=== PATIENT | female | born 1940 | race Caucasian/White ===

== ENCOUNTER 2023-05-31 12:18 | Inpatient (IN) | payer MEDICARE, BC ==
[~2023-05-31] VITALS: Ht 167.6 cm; Wt 108.4 kg
[2023-05-31] MEDS ORDERED: VANCOMYCIN IV 1,000 MG in IV DEXTROSE 5% 250 ML IV ONE (12:45)
[2023-05-31] MEDS ORDERED: IV NORMAL SALINE 1000 ML BAG IV ONE (12:45)
[2023-05-31] MEDS ORDERED: CEFTRIAXONE 2 G in IV DEXTROSE 5% 100 ML IV ONE (12:45)
[2023-05-31 13:05] LABS: BASOPHILS # (AUTO) 0.1 K/UL (0.0-0.2); BASOPHILS % (AUTO) 0.5 % (0.0-2.0); DIFFERENTIAL COMMENT 0; HEMATOCRIT 44.3 % (31.2-41.9); HEMOGLOBIN 14.4 g/dL (10.9-14.3); LYMPHOCYTES # (AUTO) 0.7 K/uL (0.8-4.8); MEAN CORPUSCULAR HEMOGLOBIN 27.6 uug (24.7-32.8); MEAN CORPUSCULAR HGB CONC 33 g/dL (32.3-35.6); MEAN CORPUSCULAR VOLUME 84.7 fL (75.5-95.3); MONOCYTES # (AUTO) 0.4 K/uL (0.1-1.30); MONOCYTES % (AUTO) 3.8 % (0.0-11.0); NEUTROPHILS # (AUTO) 10.3 K/uL (1.8-8.9); NEUTROPHILS % (AUTO) 89.7 % (38.5-71.5); PLATELET COUNT (AUTO) 288 K/uL (179-408); RED BLOOD CELL COUNT(AUTO) 5.23 MIL/uL (3.63-4.92); RED CELL DISTRIBUTION WIDTH 15.2 % (12.3-17.7); WHITE BLOOD COUNT (AUTO) 11.5 K/uL (3.8-11.8)
[2023-05-31] MEDS ORDERED: VANCOMYCIN IV 200 ML ONE (13:06)
[2023-05-31] MEDS ORDERED: CEFTRIAXONE /D5W 50ML IVPB **ER PYXIS IV ONE (13:06)
[2023-05-31 13:35] LABS: ALANINE AMINOTRANSFERASE 32 U/L (14-59); ALBUMIN 3.6 g/dL (3.4-5.0); ALKALINE PHOSPHATASE 79 U/L (50-136); ASPARTATE AMINOTRANSFERASE 106 U/L (15-37); BILIRUBIN,DIRECT 0.2 mg/dL (0.0-0.2); BILIRUBIN,TOTAL 0.8 mg/dL (0.2-1.0); CALCIUM 9.6 mg/dL (8.5-10.1); CARBON DIOXIDE 27 mmol/L (21-32); CHLORIDE 99 mmol/L (98-107); CREATININE 0.9 mg/dL (0.6-1.3); GLUCOSE 114 mg/dL (74-106); SODIUM SERUM 139 mmol/L (136-145); TOTAL PROTEIN, SERUM 8.1 g/dL (6.4-8.2); UREA NITROGEN, BLOOD 19 mg/dL (7-18)
[2023-05-31 13:40] LABS: THYROID STIMULATING HORMONE 2.148 mIU/mL (0.358-3.740)
[2023-05-31 14:01] LABS: AMMONIA < 10 umol/L (11-32); ETHANOL < 3 MG/DL (0-10)
[2023-05-31 14:02] LABS: ACETAMINOPHEN < 10.0 ug/mL (10-30)
[2023-05-31 14:43] LABS: *BILIRUBIN,URIN NEGATIVE (NEGATIVE); *BLOOD, URINE NEGATIVE (NEGATIVE); *CLARITY,URINE CLEAR (CLEAR); *COLOR,URINE YELLOW (YELLOW); *KETONES,URINE 2+ (NEGATIVE); *PROTEIN,URINE 1+ (NEGATIVE); *UROBILINOGEN,URINE 0.2 E.U./dl (NORMAL); LEUKOCYTE ESTERASE ,URINE NEGATIVE (NEGATIVE); NITRITE, URINE NEGATIVE (NEGATIVE); PH,URINE 5.5 (5.0-8.0); UGLUCOSE NEGATIVE (NEGATIVE)
[2023-05-31 15:02] LABS: *AMPHETAMINE, URINE NEGATIVE (NEGATIVE); *BARBITURATE, URINE NEGATIVE (NEGATIVE); *BENZODIAZEPINE, URINE NEGATIVE (NEGATIVE); *CANNABINOID, URINE NEGATIVE (NEGATIVE); *COCCAINE, URINE NEGATIVE (NEGATIVE); *OPIATE, URINE NEGATIVE (NEGATIVE); *PHENCYCLIDINE SCREEN,URINE NEGATIVE (NEGATIVE)
[2023-05-31 15:05] LABS: FENTANYL, URINE NEGATIVE (NEGATIVE)
[2023-05-31 16:13] LABS: BACTERIA,URINE NONE SEEN /HPF (NONE SEEN); RBC,URINE 0-3 /HPF (0-3); SQUAMOUS EPITHELIAL CELL,UR FEW /HPF (NONE SEEN); WBC,URINE NONE SEEN /HPF (0-3)
[2023-05-31] MEDS ORDERED: ONDANSETRON 4 MG/2 ML VIAL IV PRN (18:15)
[2023-05-31] MEDS ORDERED: ACETAMINOPHEN 325 MG TABLET PO PRN (18:15)
[2023-05-31] MEDS ORDERED: REMEDY ESSENTIAL ZINC PASTE 113 GM TP PRN (18:15)
[2023-05-31] MEDS ORDERED: MAGNESIUM HYDROXIDE 30 ML LIQUID UDC PO PRN (18:15)
[2023-05-31 18:28] VITALS: BP 138/86; TEMP 97.7; O2SAT 99
[2023-05-31] MEDS: IV NS 1000 ML 1,000 ML IV PRN (19:59)
[2023-05-31 20:03] VITALS: BP 140/84; TEMP 97.8; O2SAT 98
[2023-05-31] MEDS ORDERED: diphenhydrAMINE 25 MG CAP PO PRN (22:15)
[2023-06-01 04:05] VITALS: BP 127/88; TEMP 97.6; O2SAT 97
[2023-06-01 07:37] LABS: BASOPHILS # (AUTO) 0.1 K/UL (0.0-0.2); EOSINOPHILS # (AUTO) 0.1 K/uL (0.0-0.7); EOSINOPHILS % (AUTO) 0.7 % (0.0-7.0); HEMATOCRIT 38.2 % (31.2-41.9); HEMOGLOBIN 12.6 g/dL (10.9-14.3); LYMPHOCYTES % (AUTO) 12.3 % (20.5-51.5); MEAN CORPUSCULAR HEMOGLOBIN 28.1 uug (24.7-32.8); MEAN CORPUSCULAR HGB CONC 33 g/dL (32.3-35.6); MEAN CORPUSCULAR VOLUME 85.6 fL (75.5-95.3); MONOCYTES # (AUTO) 0.5 K/uL (0.1-1.30); MONOCYTES % (AUTO) 6.3 % (0.0-11.0); NEUTROPHILS # (AUTO) 6.6 K/uL (1.8-8.9); NEUTROPHILS % (AUTO) 79.7 % (38.5-71.5); PLATELET COUNT (AUTO) 251 K/uL (179-408); RED BLOOD CELL COUNT(AUTO) 4.46 MIL/uL (3.63-4.92); RED CELL DISTRIBUTION WIDTH 15.1 % (12.3-17.7); WHITE BLOOD COUNT (AUTO) 8.3 K/uL (3.8-11.8)
[2023-06-01 07:49] LABS: DIFFERENTIAL COMMENT 1
[2023-06-01 07:59] LABS: CALCIUM 8.6 mg/dL (8.5-10.1); CARBON DIOXIDE 26 mmol/L (21-32); CHLORIDE 107 mmol/L (98-107); CREATININE 0.9 mg/dL (0.6-1.3); GLUCOSE 89 mg/dL (74-106); MAGNESIUM 1.9 mg/dL (1.8-2.4); PHOSPHOROUS 2.6 mg/dL (2.5-4.9); POTASSIUM 3.5 mmol/L (3.5-5.1); SODIUM SERUM 143 mmol/L (136-145); UREA NITROGEN, BLOOD 17 mg/dL (7-18)
[2023-06-01] MEDS: IV NS 1000 ML 1,000 ML IV PRN (10:51)
[2023-06-01 11:55] VITALS: TEMP 99.5; O2SAT 95
[2023-06-01] MEDS: MUPIROCIN 2% OINT 22 GM TUBE TP SCH (14:59)
[2023-06-01 15:23] VITALS: BP 158/66; TEMP 99; O2SAT 95
[2023-06-01] MEDS ORDERED: DONE10TA44 PO (15:56)
[2023-06-01] MEDS ORDERED: AMLO-212 PO (15:56)
[2023-06-01] MEDS ORDERED: LOSA100T31 PO (15:56)
[2023-06-01] MEDS ORDERED: MEMA10TA56 PO (15:56)
[2023-06-01] MEDS ORDERED: LEVO100T10 PO (15:56)
[2023-06-01 20:01] VITALS: BP 134/69; TEMP 98.7; O2SAT 96
[2023-06-01] MEDS: CLOTRIMAZOLE/BETAMET DIPROP CREAM 15 GM TUBE TOP SCH (21:52)
[2023-06-02 04:01] VITALS: BP 138/65; TEMP 98.6; O2SAT 97
[2023-06-02] MEDS: LEVOTHYROXINE SODIUM 100 MCG TABLET PO SCH (07:22)
[2023-06-02] MEDS: LOSARTAN POTASSIUM 50 MG TABLET PO SCH (09:00)
[2023-06-02 09:37] LABS: BASOPHILS # (AUTO) 0.1 K/UL (0.0-0.2); BASOPHILS % (AUTO) 1.3 % (0.0-2.0); EOSINOPHILS # (AUTO) 0.1 K/uL (0.0-0.7); EOSINOPHILS % (AUTO) 1.9 % (0.0-7.0); HEMATOCRIT 37.2 % (31.2-41.9); HEMOGLOBIN 12.4 g/dL (10.9-14.3); LYMPHOCYTES # (AUTO) 1.3 K/uL (0.8-4.8); LYMPHOCYTES % (AUTO) 19.2 % (20.5-51.5); MEAN CORPUSCULAR HEMOGLOBIN 28.4 uug (24.7-32.8); MEAN CORPUSCULAR HGB CONC 33 g/dL (32.3-35.6); MEAN CORPUSCULAR VOLUME 85.3 fL (75.5-95.3); MONOCYTES # (AUTO) 0.5 K/uL (0.1-1.30); MONOCYTES % (AUTO) 7.8 % (0.0-11.0); NEUTROPHILS # (AUTO) 4.8 K/uL (1.8-8.9); NEUTROPHILS % (AUTO) 69.8 % (38.5-71.5); PLATELET COUNT (AUTO) 227 K/uL (179-408); RED BLOOD CELL COUNT(AUTO) 4.36 MIL/uL (3.63-4.92); RED CELL DISTRIBUTION WIDTH 15.5 % (12.3-17.7); WHITE BLOOD COUNT (AUTO) 6.8 K/uL (3.8-11.8)
[2023-06-02 09:38] LABS: DIFFERENTIAL COMMENT 1
[2023-06-02] MEDS: MEMANTINE HCL 10 MG TABLET PO SCH (09:45)
[2023-06-02] MEDS: DONEPEZIL 10 MG TABLET PO SCH (09:45)
[2023-06-02 09:46] LABS: CALCIUM 8.4 mg/dL (8.5-10.1); CARBON DIOXIDE 27 mmol/L (21-32); CHLORIDE 105 mmol/L (98-107); CREATININE 0.8 mg/dL (0.6-1.3); GLUCOSE 99 mg/dL (74-106); MAGNESIUM 1.7 mg/dL (1.8-2.4); PHOSPHOROUS 2.2 mg/dL (2.5-4.9); POTASSIUM 3.1 mmol/L (3.5-5.1); SODIUM SERUM 140 mmol/L (136-145); UREA NITROGEN, BLOOD 12 mg/dL (7-18)
[2023-06-02] MEDS: AMLODIPINE 5 MG TABLET PO SCH (09:53)
[2023-06-02] MEDS: CLOTRIMAZOLE/BETAMET DIPROP CREAM 15 GM TUBE TOP SCH ×2 (09:55→20:55)
[2023-06-02] MEDS: MUPIROCIN 2% OINT 22 GM TUBE TP SCH (09:55)
[2023-06-02 11:16] VITALS: BP 100/73; TEMP 97.6; O2SAT 94
[2023-06-02] MEDS: IV NS 1000 ML 1,000 ML IV PRN (12:16)
[2023-06-02 15:39] VITALS: BP 110/70; TEMP 98.5; O2SAT 94
[2023-06-02] MEDS ORDERED: NEUTRA PHOS PACKET PO ONE (16:00)
[2023-06-02] MEDS ORDERED: MAGNESIUM OXIDE 400 MG TABLET PO ONE (16:00)
[2023-06-02] MEDS ORDERED: POTASSIUM CHLORIDE 20 MEQ TAB.PRT.SR PO ONE (18:00)
[2023-06-02 20:00] VITALS: BP 128/72; TEMP 99; O2SAT 96
[2023-06-03] MEDS: IV NS 1000 ML 1,000 ML IV PRN ×2 (01:06→20:35)
[2023-06-03 04:00] VITALS: BP 176/87; TEMP 98.4; O2SAT 96
[2023-06-03] MEDS: LOSARTAN POTASSIUM 50 MG TABLET PO SCH (05:41)
[2023-06-03] MEDS: LEVOTHYROXINE SODIUM 100 MCG TABLET PO SCH (06:56)
[2023-06-03 07:06] LABS: CALCIUM 8.7 mg/dL (8.5-10.1); CARBON DIOXIDE 28 mmol/L (21-32); CHLORIDE 102 mmol/L (98-107); CREATININE 0.7 mg/dL (0.6-1.3); GLUCOSE 112 mg/dL (74-106); PHOSPHOROUS 2.7 mg/dL (2.5-4.9); POTASSIUM 3.9 mmol/L (3.5-5.1); SODIUM SERUM 136 mmol/L (136-145); UREA NITROGEN, BLOOD 12 mg/dL (7-18)
[2023-06-03 07:10] VITALS: BP 169/70; O2SAT 96
[2023-06-03] MEDS: AMLODIPINE 5 MG TABLET PO SCH (08:46)
[2023-06-03] MEDS: MEMANTINE HCL 10 MG TABLET PO SCH (08:46)
[2023-06-03] MEDS: DONEPEZIL 10 MG TABLET PO SCH (08:47)
[2023-06-03] MEDS: MUPIROCIN 2% OINT 22 GM TUBE TP SCH (08:48)
[2023-06-03] MEDS: CLOTRIMAZOLE/BETAMET DIPROP CREAM 15 GM TUBE TOP SCH ×2 (08:48→20:22)
[2023-06-03 11:43] VITALS: BP 152/78; TEMP 98.2; O2SAT 96
[2023-06-03 16:15] VITALS: BP 165/80; TEMP 98; O2SAT 96
[2023-06-03 20:00] VITALS: BP 139/73; TEMP 97.5; O2SAT 99
[2023-06-04 04:00] VITALS: BP 168/80; TEMP 97.9; O2SAT 98
[2023-06-04] MEDS: LEVOTHYROXINE SODIUM 100 MCG TABLET PO SCH (06:08)
[2023-06-04] MEDS: LOSARTAN POTASSIUM 50 MG TABLET PO SCH (09:22)
[2023-06-04] MEDS: DONEPEZIL 10 MG TABLET PO SCH (09:22)
[2023-06-04] MEDS: AMLODIPINE 5 MG TABLET PO SCH (09:23)
[2023-06-04] MEDS: MUPIROCIN 2% OINT 22 GM TUBE TP SCH (09:23)
[2023-06-04] MEDS: CLOTRIMAZOLE/BETAMET DIPROP CREAM 15 GM TUBE TOP SCH (09:23)
[2023-06-04] MEDS: MEMANTINE HCL 10 MG TABLET PO SCH (09:23)
[2023-06-04 11:30] VITALS: BP 155/77; TEMP 98.5; O2SAT 96
[2023-06-04] MEDS ORDERED: AMLO10TA59 PO (11:30)
[2023-06-04] MEDS: IV NS 1000 ML 1,000 ML IV PRN (12:37)
[2023-06-04 16:28] VITALS: BP 134/68; TEMP 98.4; O2SAT 96
== END 2023-06-04 20:05 | DRG 557 ==
LOC: ER 12:18 → MEDSURG3 17:51
PROVIDERS: ADMIT Internal Medicine; ATTEND Internal Medicine
DX: M62.82 Rhabdomyolysis (principal); G93.41 Metabolic encephalopathy; D68.59 Other primary thrombophilia; F03.918 Unspecified dementia, unspecified severity, with other behavioral disturbance; I67.82 Cerebral ischemia; E86.0 Dehydration; E66.01 Morbid (severe) obesity due to excess calories; Z68.38 Body mass index [BMI] 38.0-38.9, adult; E78.5 Hyperlipidemia, unspecified; Z96.643 Presence of artificial hip joint, bilateral; T68.XXXA Hypothermia, initial encounter; R82.4 Acetonuria; M20.42 Other hammer toe(s) (acquired), left foot; M20.41 Other hammer toe(s) (acquired), right foot; S80.812A Abrasion, left lower leg, initial encounter; S80.811A Abrasion, right lower leg, initial encounter; W18.30XA Fall on same level, unspecified, initial encounter; Y92.009 Unspecified place in unspecified non-institutional (private) residence as the place of occurrence of the external cause; R60.0 Localized edema; R79.89 Other specified abnormal findings of blood chemistry; I10 Essential (primary) hypertension
CPT/HCPCS: 36415; 70450; 71045; 72125; 83605; 83735; 84100; 84443; 84484; 85025; 85730; 87040; 93005; 93307; G0378; G0480; J0696; J3370; J7040

== ENCOUNTER 2025-03-26 09:23 | Inpatient (IN) | payer BC, MEDICARE ==
[~2025-03-26] VITALS: Ht 162.6 cm; Wt 101.6 kg
[~2025-03-26 09:23] MED LIST: AMLO10TA59 PO; DONE10TA44 PO; LEVO100T10 PO; LOSA100T31 PO; MEMA10TA56 PO
[2025-03-26] MEDS: IV NORMAL SALINE 1000 ML BAG IV ONE (09:38)
[2025-03-26 09:57] LABS: PLATELET COUNT (AUTO) 281 K/uL (179-408); RED BLOOD CELL COUNT(AUTO) 4.24 MIL/uL (3.63-4.92); RED CELL DISTRIBUTION WIDTH 15.6 % (12.3-17.7); WHITE BLOOD COUNT (AUTO) 7.7 K/uL (3.8-11.8)
[2025-03-26 10:06] LABS: CREATININE 1.0 mg/dL (0.6-1.3); SODIUM SERUM 144 mmol/L (136-145); UREA NITROGEN, BLOOD 23 mg/dL (7-18)
[2025-03-26 10:13] LABS: *BILIRUBIN,URIN NEGATIVE (NEGATIVE); *BLOOD, URINE 3+ (NEGATIVE); *CLARITY,URINE SLIGHTLY CLOUDY (CLEAR); *COLOR,URINE YELLOW (YELLOW); *KETONES,URINE 2+ (NEGATIVE); *PROTEIN,URINE 2+ (NEGATIVE); *UROBILINOGEN,URINE 0.2 E.U./dl (NORMAL); LEUKOCYTE ESTERASE ,URINE 3+ (NEGATIVE); NITRITE, URINE POSITIVE (NEGATIVE); UGLUCOSE NEGATIVE (NEGATIVE)
[2025-03-26] MEDS ORDERED: LIDOCAINE HCL 1% 20 ML VIAL ONE (10:13)
[2025-03-26] MEDS: LIDOCAINE 2%-EPI 1:100,000 20 ML VIAL IJ ONE (10:15)
[2025-03-26 10:20] LABS: ASPARTATE AMINOTRANSFERASE 20 U/L (15-37); TOTAL PROTEIN, SERUM 7.4 g/dL (6.4-8.2)
[2025-03-26] MEDS ORDERED: LIDOCAINE 1%-EPI 1:100,000 20 ML VIAL ONE (10:20)
[2025-03-26] MEDS ORDERED: NEOMY/BACITRA/POLYMYXIN B OINT UD PACKET TP ONE (10:21)
[2025-03-26] MEDS: NEOMY/BACITRA/POLYMYXIN B OINT UD PACKET TP ONE (10:22)
[2025-03-26 10:36] LABS: SQUAMOUS EPITHELIAL CELL,UR MODERATE /HPF (NONE SEEN)
[2025-03-26] MEDS ORDERED: CEFAZOLIN 1 G VIAL ONE (11:42)
[2025-03-26] MEDS: CEFAZOLIN 1 G in IV DEXTROSE 5% 50 ML IV ONE (11:46)
[2025-03-26 12:05] VITALS: BP 151/74
[2025-03-26 12:37] VITALS: BP 131/50; TEMP 97.5; O2SAT 100
[2025-03-26] MEDS ORDERED: METO-356 PO (12:43)
[2025-03-26] MEDS ORDERED: MAGNESIUM HYDROXIDE 30 ML LIQUID UDC PO PRN (13:45)
[2025-03-26] MEDS ORDERED: PIPERACILLIN SODIUM/TAZOBACTAM 3.375 G in IV DEXTROSE 5% 50 ML IV SCH (14:00)
[2025-03-26] MEDS: PIPERACILLIN SODIUM/TAZOBACTAM 3.375 G in IV DEXTROSE 5% 100 ML IV SCH (14:25)
[2025-03-26] MEDS ORDERED: METO-357 PO (14:46)
[2025-03-26] MEDS ORDERED: FURO20TA4 PO (14:46)
[2025-03-26 15:52] VITALS: O2SAT 96
[2025-03-26 16:00] VITALS: BP 138/61; TEMP 97.8; O2SAT 100
[2025-03-26] MEDS: NYSTATIN POWDER 15 GM BOTTLE TOP SCH (16:05)
[2025-03-26 19:00] VITALS: BP 130/68; TEMP 98; O2SAT 98
[2025-03-26] MEDS: ACETAMINOPHEN 325 MG TABLET PO PRN (22:20)
[2025-03-27 05:17] VITALS: O2SAT 96
[2025-03-27 06:04] VITALS: BP 106/81; TEMP 97.6; O2SAT 95
[2025-03-27 06:12] VITALS: BP 118/58; TEMP 97.7; O2SAT 91
[2025-03-27 08:35] LABS: PLATELET COUNT (AUTO) 246 K/uL (179-408); RED BLOOD CELL COUNT(AUTO) 3.98 MIL/uL (3.63-4.92); RED CELL DISTRIBUTION WIDTH 16.1 % (12.3-17.7); WHITE BLOOD COUNT (AUTO) 5.2 K/uL (3.8-11.8)
[2025-03-27 08:49] LABS: CREATININE 1.0 mg/dL (0.6-1.3); SODIUM SERUM 140 mmol/L (136-145); UREA NITROGEN, BLOOD 17 mg/dL (7-18)
[2025-03-27] MEDS: LEVOTHYROXINE SODIUM 100 MCG TABLET PO SCH (10:52)
[2025-03-27 12:00] VITALS: BP 141/61; TEMP 97.8; O2SAT 97
[2025-03-27 16:00] VITALS: BP 138/57; TEMP 97.6; O2SAT 100
[2025-03-27] MEDS: SILVER SULFADIAZINE 1% CREAM 50 GM TP SCH (18:33)
[2025-03-27 19:45] VITALS: BP 138/72; TEMP 97.3; O2SAT 98
[2025-03-28] VITALS (7 sets, daily range): BP systolic 141–164; BP diastolic 62–79; TEMP 97.7–99; O2SAT 94–97
[2025-03-28 06:46] LABS: PLATELET COUNT (AUTO) 282 K/uL (179-408); RED BLOOD CELL COUNT(AUTO) 4.46 MIL/uL (3.63-4.92); RED CELL DISTRIBUTION WIDTH 15.7 % (12.3-17.7); WHITE BLOOD COUNT (AUTO) 5.8 K/uL (3.8-11.8)
[2025-03-28 07:04] LABS: CREATININE 0.8 mg/dL (0.6-1.3); SODIUM SERUM 139 mmol/L (136-145); UREA NITROGEN, BLOOD 14 mg/dL (7-18)
[2025-03-28] MEDS: FUROSEMIDE 20 MG TABLET PO SCH (08:40)
[2025-03-28] MEDS: METOPROLOL SUCCINATE XL 50 MG TAB.SR.24H PO SCH (08:40)
[2025-03-28] MEDS: MIRALAX 17 GM POWD.PACK PO SCH (17:29)
[2025-03-29 06:38] VITALS: BP 151/70; TEMP 97.7; O2SAT 97
[2025-03-29 06:56] LABS: PLATELET COUNT (AUTO) 283 K/uL (179-408); RED BLOOD CELL COUNT(AUTO) 4.31 MIL/uL (3.63-4.92); RED CELL DISTRIBUTION WIDTH 15.5 % (12.3-17.7); WHITE BLOOD COUNT (AUTO) 5.9 K/uL (3.8-11.8)
[2025-03-29 07:00] LABS: CREATININE 1.0 mg/dL (0.6-1.3); SODIUM SERUM 142 mmol/L (136-145); UREA NITROGEN, BLOOD 12 mg/dL (7-18)
[2025-03-29 11:00] VITALS: BP 145/51; TEMP 98.1; O2SAT 95
[2025-03-29] MEDS: POTASSIUM CHLORIDE 20 MEQ TAB.PRT.SR PO ONE (11:03)
[2025-03-29 15:33] VITALS: BP 124/63; TEMP 98.6; O2SAT 97
[2025-03-29 15:40] VITALS: BP 106/57; TEMP 98.3; O2SAT 98
[2025-03-29 19:00] VITALS: BP 151/69; TEMP 99.3; O2SAT 97
[2025-03-30] MEDS: REMEDY ESSENTIAL ZINC PASTE 113 GM TP PRN (06:00)
[2025-03-30 06:15] VITALS: BP 155/62; TEMP 97.9; O2SAT 97
[2025-03-30 06:45] LABS: PLATELET COUNT (AUTO) 278 K/uL (179-408); RED BLOOD CELL COUNT(AUTO) 4.50 MIL/uL (3.63-4.92); RED CELL DISTRIBUTION WIDTH 15.7 % (12.3-17.7); WHITE BLOOD COUNT (AUTO) 5.6 K/uL (3.8-11.8)
[2025-03-30 06:55] LABS: CREATININE 1.1 mg/dL (0.6-1.3); SODIUM SERUM 140 mmol/L (136-145); UREA NITROGEN, BLOOD 13 mg/dL (7-18)
[2025-03-30 12:08] VITALS: BP 148/64; TEMP 97.9; O2SAT 98
[2025-03-30 16:19] VITALS: BP 144/61; TEMP 97.8; O2SAT 98
[2025-03-30 19:46] VITALS: BP 159/69; TEMP 98.5; O2SAT 97
[2025-03-31 06:27] VITALS: BP 99/81; TEMP 97.6; O2SAT 95
[2025-03-31] MEDS ORDERED: AMOX-430 PO (10:43)
[2025-03-31 12:00] VITALS: BP 167/83; TEMP 98.8; O2SAT 96
[2025-03-31 16:09] VITALS: BP 147/60; TEMP 98.3; O2SAT 96
[2025-03-31 19:00] VITALS: BP 167/74; TEMP 98.4; O2SAT 95
[2025-03-31 21:55] VITALS: BP 146/81; TEMP 98.4; O2SAT 95
[2025-04-01 05:14] VITALS: BP 154/70; TEMP 98.6; O2SAT 95
[2025-04-01 08:18] VITALS: BP 152/79
[2025-04-01 08:20] VITALS: BP 152/79
== END 2025-04-01 10:30 | disposition home or self-care (01) | DRG 982 ==
LOC: ER 09:23 → TELE3 12:17 → MEDSURG3 13:03
PROVIDERS: ADMIT Nurse Practitioner Acute Care; ATTEND Nurse Practitioner Acute Care
PROC: 0KBC0ZZ Excision of Right Hand Muscle, Open Approach (ICD-10-PCS; principal; 2025-03-28)
DX: L03.011 Cellulitis of right finger (principal); L98.A31 Non-pressure chronic ulcer of right hand; B36.9 Superficial mycosis, unspecified; N39.0 Urinary tract infection, site not specified; B96.20 Unspecified Escherichia coli [E. coli] as the cause of diseases classified elsewhere; B96.89 Other specified bacterial agents as the cause of diseases classified elsewhere; E03.9 Hypothyroidism, unspecified; E66.9 Obesity, unspecified; I10 Essential (primary) hypertension; F03.90 Unspecified dementia, unspecified severity, without behavioral disturbance, psychotic disturbance, mood disturbance, and anxiety; S60.472A Other superficial bite of right middle finger, initial encounter; W54.0XXA Bitten by dog, initial encounter; Y93.89 Activity, other specified; Y92.009 Unspecified place in unspecified non-institutional (private) residence as the place of occurrence of the external cause; L30.4 Erythema intertrigo; Z68.38 Body mass index [BMI] 38.0-38.9, adult; Z79.890 Hormone replacement therapy; I89.0 Lymphedema, not elsewhere classified; R60.0 Localized edema; R53.1 Weakness; E87.6 Hypokalemia; R79.89 Other specified abnormal findings of blood chemistry; Z79.899 Other long term (current) drug therapy; E86.0 Dehydration; G47.33 Obstructive sleep apnea (adult) (pediatric)
CPT/HCPCS: 36415; 71045; 73200; 83605; 83735; 84100; 84443; 85025; 85730; 87040; 87070; 87077; 87086; 97535-GO-CO; A4606; A4663; A6213; G0378; J0690; J2543; J3490; J7040

== ENCOUNTER 2025-04-25 13:12 | Inpatient (IN) | payer MEDICARE ==
[~2025-04-25] VITALS: Ht 167.6 cm; Wt 92.6 kg
[~2025-04-25 13:12] MED LIST changes: -AMLO10TA59 PO; +AMOX-319 PO; -DONE10TA44 PO; +FURO20TA4 PO; -LOSA100T31 PO; -MEMA10TA56 PO; +METO-357 PO
[2025-04-25] MEDS ORDERED: CEFAZOLIN 1 G VIAL ONE (16:10)
[2025-04-25] MEDS: CEFAZOLIN 1 G in IV DEXTROSE 5% 50 ML IV ONE (16:17)
[2025-04-25 16:18] LABS: CREATININE 1.1 mg/dL (0.6-1.3); SODIUM SERUM 141 mmol/L (136-145); UREA NITROGEN, BLOOD 26 mg/dL (7-18)
[2025-04-25 16:24] LABS: ASPARTATE AMINOTRANSFERASE 29 U/L (15-37); TOTAL PROTEIN, SERUM 7.2 g/dL (6.4-8.2)
[2025-04-25 16:43] LABS: PLATELET COUNT (AUTO) 247 K/uL (179-408); RED BLOOD CELL COUNT(AUTO) 4.36 MIL/uL (3.63-4.92); RED CELL DISTRIBUTION WIDTH 15.5 % (12.3-17.7); WHITE BLOOD COUNT (AUTO) 5.8 K/uL (3.8-11.8)
[2025-04-25 17:02] LABS: *BILIRUBIN,URIN NEGATIVE (NEGATIVE); *COLOR,URINE YELLOW (YELLOW); *KETONES,URINE NEGATIVE (NEGATIVE); *PROTEIN,URINE TRACE (NEGATIVE); *UROBILINOGEN,URINE 0.2 E.U./dl (NORMAL); LEUKOCYTE ESTERASE ,URINE 3+ (NEGATIVE); NITRITE, URINE POSITIVE (NEGATIVE); UGLUCOSE NEGATIVE (NEGATIVE)
[2025-04-25 17:06] LABS: *BLOOD, URINE TRACE (NEGATIVE); *CLARITY,URINE HAZY (CLEAR)
[2025-04-25 17:14] LABS: SQUAMOUS EPITHELIAL CELL,UR FEW /HPF (NONE SEEN)
[2025-04-25] MEDS ORDERED: ACETAMINOPHEN 325 MG TABLET PO PRN (17:15)
[2025-04-25] MEDS ORDERED: MAGNESIUM HYDROXIDE 30 ML LIQUID UDC PO PRN (17:15)
[2025-04-25] MEDS ORDERED: ONDANSETRON 4 MG/2 ML VIAL IV PRN (17:15)
[2025-04-25 18:10] VITALS: BP 149/81
[2025-04-25] MEDS ORDERED: AMLO-212 PO (18:17)
[2025-04-25] MEDS ORDERED: DONE10TA44 PO (18:17)
[2025-04-25] MEDS ORDERED: LOSA100T32 PO (18:17)
[2025-04-25 19:00] VITALS: BP 114/72; TEMP 97.7; O2SAT 99
[2025-04-25] MEDS: IV NS 1000 ML 1,000 ML IV PRN (19:14)
[2025-04-25 19:30] VITALS: BP 141/55; TEMP 96.9; O2SAT 100
[2025-04-25] MEDS: PIPERACILLIN SODIUM/TAZOBACTAM 3.375 G in IV DEXTROSE 5% 50 ML IV SCH (22:08)
[2025-04-25] MEDS: ENOXAPARIN SODIUM 40 MG/0.4 ML DISP.SYRIN SQ SCH (22:19)
[2025-04-26] MEDS ORDERED: CEFAZOLIN 1 G in IV DEXTROSE 5% 50 ML IV SCH (00:01)
[2025-04-26 06:10] VITALS: BP 131/55; TEMP 97.8; O2SAT 96
[2025-04-26] MEDS: PANTOPRAZOLE SODIUM 40 MG TABLET.DR PO SCH (06:42)
[2025-04-26 07:16] LABS: PLATELET COUNT (AUTO) 247 K/uL (179-408); RED BLOOD CELL COUNT(AUTO) 4.26 MIL/uL (3.63-4.92); RED CELL DISTRIBUTION WIDTH 15.3 % (12.3-17.7); WHITE BLOOD COUNT (AUTO) 4.9 K/uL (3.8-11.8)
[2025-04-26 07:26] LABS: CREATININE 1.0 mg/dL (0.6-1.3); SODIUM SERUM 142 mmol/L (136-145); UREA NITROGEN, BLOOD 21 mg/dL (7-18)
[2025-04-26 11:55] VITALS: BP 121/50; TEMP 98.7; O2SAT 96
[2025-04-26] MEDS: AMLODIPINE 5 MG TABLET PO SCH (13:56)
[2025-04-26] MEDS: PIPERACILLIN SODIUM/TAZOBACTAM 3.375 G in IV DEXTROSE 5% 100 ML IV SCH (14:13)
[2025-04-26] MEDS: LORAZEPAM 0.5 MG TABLET PO PRN (14:37)
[2025-04-26 16:31] VITALS: BP 118/56; TEMP 98; O2SAT 97
[2025-04-26 19:00] VITALS: BP 128/60; TEMP 98.8; O2SAT 98
[2025-04-27 04:00] VITALS: BP 147/67; TEMP 98; O2SAT 97
[2025-04-27] MEDS: LEVOTHYROXINE SODIUM 100 MCG TABLET PO SCH (06:42)
[2025-04-27 07:15] LABS: PLATELET COUNT (AUTO) 235 K/uL (179-408); RED BLOOD CELL COUNT(AUTO) 4.08 MIL/uL (3.63-4.92); RED CELL DISTRIBUTION WIDTH 15.6 % (12.3-17.7); WHITE BLOOD COUNT (AUTO) 4.2 K/uL (3.8-11.8)
[2025-04-27 07:25] LABS: CREATININE 1.0 mg/dL (0.6-1.3); SODIUM SERUM 144 mmol/L (136-145); UREA NITROGEN, BLOOD 18 mg/dL (7-18)
[2025-04-27] MEDS: METOPROLOL SUCCINATE XL 50 MG TAB.SR.24H PO SCH (09:57)
[2025-04-27] MEDS: DONEPEZIL 10 MG TABLET PO SCH (09:58)
[2025-04-27] MEDS: FUROSEMIDE 20 MG TABLET PO SCH (09:58)
[2025-04-27] MEDS ORDERED: REMEDY ESSENTIAL ZINC PASTE 113 GM TOP PRN (11:45)
[2025-04-27 12:04] VITALS: BP 103/63; TEMP 97.9; O2SAT 97
[2025-04-27 16:44] VITALS: BP 139/84; TEMP 97.9; O2SAT 97
[2025-04-27] MEDS: CEFTRIAXONE 500 MG in IV DEXTROSE 5% 50 ML IV SCH (17:02)
[2025-04-27] MEDS ORDERED: CEFTRIAXONE 500 MG VIAL IV ONE (18:30)
[2025-04-27 19:20] VITALS: BP 150/55; TEMP 98.5; O2SAT 99
[2025-04-27] MEDS: NYSTATIN POWDER 15 GM BOTTLE TOP SCH (20:35)
[2025-04-27] MEDS: REMEDY ESSENTIAL ZINC PASTE 113 GM TOP SCH (20:36)
[2025-04-28 06:23] VITALS: BP 136/60; TEMP 98.6; O2SAT 95
[2025-04-28 06:46] LABS: PLATELET COUNT (AUTO) 247 K/uL (179-408); RED BLOOD CELL COUNT(AUTO) 4.48 MIL/uL (3.63-4.92); RED CELL DISTRIBUTION WIDTH 15.3 % (12.3-17.7); WHITE BLOOD COUNT (AUTO) 5.9 K/uL (3.8-11.8)
[2025-04-28 07:10] LABS: CREATININE 0.9 mg/dL (0.6-1.3); SODIUM SERUM 140 mmol/L (136-145); UREA NITROGEN, BLOOD 13 mg/dL (7-18)
[2025-04-28 11:02] VITALS: BP 106/64; TEMP 98.6; O2SAT 99
[2025-04-28] MEDS ORDERED: CEFD300C3 PO ×2 (11:27)
[2025-04-28] MEDS: CEFDINIR 300 MG CAPSULE PO SCH (12:18)
[2025-04-28 14:47] VITALS: BP 144/60; TEMP 98; O2SAT 100
== END 2025-04-28 15:25 | DRG 603 ==
LOC: ER 13:12 → MEDSURG3 18:07
PROVIDERS: ADMIT Nurse Practitioner Family; ATTEND Nurse Practitioner Family
DX: L03.011 Cellulitis of right finger (principal); E44.1 Mild protein-calorie malnutrition; D68.59 Other primary thrombophilia; E88.09 Other disorders of plasma-protein metabolism, not elsewhere classified; Z78.1 Physical restraint status; N39.0 Urinary tract infection, site not specified; L03.116 Cellulitis of left lower limb; L03.115 Cellulitis of right lower limb; B96.20 Unspecified Escherichia coli [E. coli] as the cause of diseases classified elsewhere; G30.9 Alzheimer's disease, unspecified; Z68.39 Body mass index [BMI] 39.0-39.9, adult; E03.9 Hypothyroidism, unspecified; I10 Essential (primary) hypertension; F02.83 Dementia in other diseases classified elsewhere, unspecified severity, with mood disturbance; E86.0 Dehydration; Z79.890 Hormone replacement therapy; Z79.899 Other long term (current) drug therapy; E66.9 Obesity, unspecified; L30.4 Erythema intertrigo; M15.9 Polyosteoarthritis, unspecified; S30.0XXA Contusion of lower back and pelvis, initial encounter; X58.XXXA Exposure to other specified factors, initial encounter; Y92.009 Unspecified place in unspecified non-institutional (private) residence as the place of occurrence of the external cause; S61.212D Laceration without foreign body of right middle finger without damage to nail, subsequent encounter; X58.XXXD Exposure to other specified factors, subsequent encounter
CPT/HCPCS: 36415; 83735; 84100; 84484; 85025; 87040; 87077; 87086; 93005; A4606; A4663; C1758; G0378; J0690; J0696; J1650; J2543; J7040